=== PATIENT | male | born 1990 | race African-American/Black ===

== ENCOUNTER 2019-11-27 15:29 | Emergency (ER) | payer OTHER ==
[~2019-11-27] VITALS: Ht 188 cm; Wt 80.7 kg
[2019-11-27 15:37] VITALS: BP 126/86
[2019-11-27] MEDS ORDERED: PENICILLIN V P500 MG PO (15:55)
[2019-11-27] MEDS ORDERED: NORCO 5-325 TA1 EAC2 PO (15:55)
== END 2019-11-27 16:04 | disposition home or self-care (01) ==
LOC: ER 15:29
DX: K04.7 Periapical abscess without sinus (principal)